=== PATIENT | female | born 1995 | race American Indian/Alaskan Native ===

== ENCOUNTER 2017-03-26 17:03 | Emergency (ER) | payer MEDICAID ==
[2017-03-26 17:51] LABS: Mean Corpuscular HGB Conc 31 % (30-34); Mean Corpuscular Volume 80 fl (79-97); Platelet Count 441 K/mm3 (140-440); Red Blood Count 4.36 M/mm3 (3.65-5.03); Red Cell Distribution Width 16.4 % (13.2-15.2); White Blood Count 13.8 K/mm3 (4.5-11.0)
[2017-03-26 18:00] LABS: Mean Corpuscular Hemoglobin 25 pg (28-32)
[2017-03-26 18:09] LABS: Anion Gap 19 mmol/L; Blood Urea Nitrogen 9 mg/dL (7-17); Calcium 8.5 mg/dL (8.4-10.2); Carbon Dioxide 24 mmol/L (22-30); Chloride 98.4 mmol/L (98-107); Glucose 98 mg/dL (65-100); Potassium 3.8 mmol/L (3.6-5.0); Sodium 138 mmol/L (137-145)
[2017-03-26 18:25] LABS: Urine Drugs of Abuse Note Disclamer
[2017-03-26 18:51] LABS: Bilirubin,Urine NEG (Negative); Blood,Urine MOD (Negative); Ketones,Urine NEG (Negative); Leukocyte Esterase,Urine NEG (Negative); Nitrite,Urine NEG (Negative); Protein,Urine <15 mg/dL mg/dL (Negative); Urobilinogen,Urine < 2.0 mg/dL (<2.0); WBC,Urine < 1.0 /HPF (0.0-6.0)
[2017-03-26] MEDS ORDERED: ATIVAN ONE (19:40)
[2017-03-26] MEDS ORDERED: ATIVAN IV ONE (20:13)
--- NOTE | 2017-03-26 20:19 | Emergency Department Report ---
ED Seizure HPI - General Chief Complaint: Seizure Stated Complaint: SEIZURES Time Seen by Provider: 03/26/17 20:05 Source: patient Mode of arrival: Ambulatory Limitations: No Limitations - History of Present Illness Initial Comments: 21 years old female coming from [place] for multiple seizures started yesterday. Patient was admitted for suicidal ideation. Patient is only on Neurontin for seizure, she told me that she was on Depakote before and she overdosed and that medication saw her neurologist stopped the medication. Denied any fever nausea vomiting or diarrhea. No recent head injury. MD Complaint: seizure Description of Episode: loss of consciousness, tonic-clonic movement Witnessed:: Yes Trauma: No Seizure History: known seizure disorder Possible Precipitating Event: none Associated Symptoms: denies other symptoms - Related Data Home Medications Medication Instructions Recorded Confirmed Last Taken Duloxetine HCl [Cymbalta] 60 mg PO DAILY 03/26/17 03/26/17 Unknown Gabapentin [Neurontin] 300 mg PO BID 03/26/17 03/26/17 Unknown LORazepam [Ativan] 0.5 mg PO QHS 03/26/17 03/26/17 Unknown Naproxen [Naprosyn] 500 mg PO BID 03/26/17 03/26/17 Unknown hydrOXYzine PAMOATE [Vistaril] 50 mg PO BID 03/26/17 03/26/17 Unknown Previous Rx's Medication Instructions Recorded Last Taken Type Diazepam Acudial Kit [Diastat 1 each [place] ONCE PRN #1 kit 03/26/17 Unknown Rx Acudial Kit] levETIRAcetam [Keppra TAB] 500 mg PO BID #60 tablet 03/26/17 Unknown Rx Allergies Allergy/AdvReac Type Severity Reaction Status Date / Time haloperidol [From Haldol] Allergy Unknown Verified 03/26/17 17:20 haloperidol lactate Allergy Unknown Verified 03/26/17 17:20 [From Haldol] ED Review of Systems ROS: Stated complaint: SEIZURES Other details as noted in HPI Comment: All other systems reviewed and negative Constitutional: denies: chills, fever Respiratory: denies: cough, shortness of breath Cardiovascular: denies: chest pain Endocrine: denies: excessive sweating, intolerance to cold, intolerance to heat Gastrointestinal: denies: abdominal pain, nausea, vomiting Genitourinary: denies: urgency Musculoskeletal: denies: back pain, joint swelling, arthralgia Neurological: denies: headache, weakness, numbness, paresthesias, confusion, abnormal gait, vertigo Psychiatric: depression, suicidal thoughts. denies: auditory hallucinations, visual hallucinations, homicidal thoughts ED Past Medical Hx - Past Medical History Hx Seizures: Yes Hx Psychiatric Treatment: Yes (bipolar,ptsd) Hx Asthma: Yes - Surgical History Additional Surgical History: ,right boxers fx,wisdom teeth - Social History Smoking Status: Current Every Day Smoker Substance Use Type: None, Marijuana - Medications Home Medications: Home Medications Medication Instructions Recorded Confirmed Last Taken Type Diazepam Acudial Kit [Diastat 1 each [place] ONCE PRN #1 kit 03/26/17 Unknown Rx Acudial Kit] Duloxetine HCl [Cymbalta] 60 mg PO DAILY 03/26/17 03/26/17 Unknown History Gabapentin [Neurontin] 300 mg PO BID 03/26/17 03/26/17 Unknown History LORazepam [Ativan] 0.5 mg PO QHS 03/26/17 03/26/17 Unknown History Naproxen [Naprosyn] 500 mg PO BID 03/26/17 03/26/17 Unknown History hydrOXYzine PAMOATE [Vistaril] 50 mg PO BID 03/26/17 03/26/17 Unknown History levETIRAcetam [Keppra TAB] 500 mg PO BID #60 tablet 03/26/17 Unknown Rx ED Physical Exam - General Limitations: No Limitations General appearance: alert, in no apparent distress - Head Head exam: Present: atraumatic - Eye Eye exam: Present: normal appearance Pupils: Present: normal accommodation - ENT ENT exam: Present: normal exam - Neck Neck exam: Present: normal inspection. Absent: tenderness, meningismus, full ROM, lymphadenopathy - Respiratory Respiratory exam: Present: normal lung sounds bilaterally. Absent: respiratory distress, wheezes, rales, rhonchi, stridor, chest wall tenderness, accessory muscle use, decreased breath sounds - Cardiovascular Cardiovascular Exam: Present: regular rate, normal rhythm, normal heart sounds - GI/Abdominal GI/Abdominal exam: Present: soft. Absent: distended, tenderness, guarding, rebound, rigid, normal bowel sounds, mass, bruit, pulsatile mass, hernia - Extremities Exam Extremities exam: Present: normal inspection, full ROM - Back Exam Back exam: Present: normal inspection, full ROM. Absent: tenderness, CVA tenderness (R), CVA tenderness (L), muscle spasm, paraspinal tenderness, vertebral tenderness - Neurological Exam Neurological exam: Present: alert, oriented X3, CN II-XII intact, normal gait, reflexes normal. Absent: motor sensory deficit - Psychiatric Psychiatric exam: Present: depressed, suicidal ideation - Skin Skin exam: Present: warm, intact, normal color ED Course Vital Signs 03/26/17 03/26/17 17:13 19:56 Temperature 99.2 F 98.8 F Pulse Rate 108 H 65 Respiratory 18 13 Rate Blood Pressure 121/75 Blood Pressure 112/64 [Left] O2 Sat by Pulse 100 100 Oximetry - Reevaluation(s) Reevaluation #1: 03/26/17 21:30 Patient is sitting comfortably skating her Keppra right now no active seizure noted will discharge back to [facility]. I'll prescribe Keppra and Diastat for breakthrough seizure. Reevaluation #2: 03/26/17 21:31 CT brain came back negative ED Medical Decision Making - Lab Data Result diagrams: 03/26/17 17:35 03/26/17 17:35 Critical care attestation.: If time is entered above; I have spent that time in minutes in the direct care of this critically ill patient, excluding procedure time. ED Disposition Clinical Impression: Seizure Disposition: [id number] PSY HOSP/PSY UNIT Is pt being admited?: No Condition: Stable Instructions: Epilepsy (ED) Referrals: PRIMARY CARE [Primary Care Provider] - 3-5 Days
--- NOTE | 2017-03-26 20:59 | Cat Scan Report ---
FINAL REPORT PROCEDURE: CT HEAD/BRAIN WO CON TECHNIQUE: Computerized tomography of the head was performed without contrast material. HISTORY: seizure COMPARISON: No prior studies are available for comparison. FINDINGS: Skull and scalp: Normal. Paranasal sinuses: Normal. Ventricles and subarachnoid spaces: Normal. Cerebrum: No evidence of hemorrhage, acute infarction or mass . Cerebellum and brainstem: No evidence of hemorrhage, acute infarction or mass. Vasculature: Normal. Comments: None. IMPRESSION: Normal Examination
[2017-03-26] MEDS ORDERED: KEPPRA 1,000 MG/NS 0.75% 100ML 1,000 MG/100 ML BAG IV ONE (21:00)
[2017-03-26] MEDS ORDERED: KEPPRA 1,000 MG in NACL 0.9% 100 ML IV SCH (21:00)
[2017-03-27 05:07] VITALS: BP 103/55
== END 2017-03-27 01:09 ==
LOC: ED 17:03
DX: R56.9 Unspecified convulsions (principal)
CPT/HCPCS: 36415; 70450; 80048; 80307; 81001; 81025; 85027; 96374; 96375; 99285; J1953; J2060